=== PATIENT | female | born 1965 | race Caucasian/White ===

== ENCOUNTER 2021-05-05 11:49 | Emergency (ER) | payer OTHER, BC, SELFPAY ==
--- NOTE | ~2021-05-05 | XR_ITS ---
EXAMINATION: [id number] DATE: 05/05/2021 12:25 INDICATION: Right chest pain. TECHNIQUE: Frontal and lateral views of the chest and 3 views of the right ribs were obtained. COMPARISON: None. FINDINGS: CHEST TWO VIEWS: The chest demonstrates clear lungs without pneumonia, pleural effusion, or pneumotho rax. The heart size is normal. RIGHT RIBS: There is a fracture of right sixth rib. IMPRESSION: 1. Right sixth rib fracture. Reviewed, dictated and finalized at location A.
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
[2021-05-05 12:15] VITALS: BP 159/80; PULSE 81; RESP 16; TEMP 37.2; O2SAT 100
== END 2021-05-05 12:47 | disposition home or self-care (01) ==
PROVIDERS: Emergency Provider Nurse Practitioner Family
DX: S22.31XA Fracture of one rib, right side, initial encounter for closed fracture (principal); V43.52XA Car driver injured in collision with other type car in traffic accident, initial encounter; I10 Essential (primary) hypertension
CPT/HCPCS: 71101; 99203; G0463